=== PATIENT | male | born 1970 | race Caucasian/White ===

== ENCOUNTER 2016-10-27 12:52 | Emergency (ER) | payer OTHER ==
[~2016-10-27 12:52] MED LIST: CETI10TA16 PO; FLUT16SP NS; IBUP200T58 PO; INSU100I17 SQ; INSU100I27 SQ; NYST1000 PO
[2016-10-27 13:03] VITALS: BP 147/88
[2016-10-27] MEDS ORDERED: HYDROCODONE/APAP 5/325MG TABLET. PO ONE (14:30)
[2016-10-27] MEDS ORDERED: CYCLOBENZAPRINE 10 MG TABLET. PO ONE (14:30)
--- NOTE | 2016-10-27 14:32 | PHYS DOC ---
Past Medical History Past Medical History: No Pertinent History, Diabetes-Type II, Other Additional Past Medical Histor: THRESH Past Surgical History: No Surgical History Alcohol Use: Heavy Drug Use: None Adult General Chief Complaint Chief Complaint: [facility] HPI Patient is a 46 year old male with history of diabetes who presents with mild left shoulder pain radiating to the left upper extremity that began one week ago. Patient states the pain is worse with activity especially flexing and extending his neck or raising his left upper extremity. Patient states he has a tingling sensation to his fingers. Patient denies any injury. Denies any chest pain or shortness of breath. He clearly states it's not his heart. He states his PCP is Dr. Kenneth Johnson, he states his blood sugars run on average at 120 Review of Systems Review of Systems Constitutional: Denies fever or chills [] Eyes: Denies change in visual acuity, redness, or eye pain [] HENT: Denies nasal congestion or sore throat [] Respiratory: Denies cough or shortness of breath [] Cardiovascular: No additional information not addressed in HPI [] GI: Denies abdominal pain, nausea, vomiting, bloody stools or diarrhea [] : Denies dysuria or hematuria [] Musculoskeletal: Left shoulder pain Integument: Denies rash or skin lesions [] Neurologic: Denies headache, focal weakness or sensory changes [] Endocrine: Denies polyuria or polydipsia [] Current Medications Current Medications Current Medications Medications (Trade) Dose Ordered Sig/Denisse Start Time Stop Time Status Last Admin Dose Admin Acetaminophen/ Hydrocodone Bitart (Lortab 5/325) 1 tab 1X ONCE 10/27/16 14:30 10/27/16 14:31 DC 10/27/16 14:29 1 TAB Cyclobenzaprine HCl (Flexeril) 10 mg 1X ONCE 10/27/16 14:30 10/27/16 14:31 DC 10/27/16 14:29 10 MG Allergies Allergies Allergies Coded Allergies Type Severity Reaction Last Updated Verified No Known Medication Allergies Allergy Unknown 10/27/16 Yes mushroom Adverse Reaction Mild N/V 05/21/15 Yes shellfish derived Adverse Reaction Mild N/V 05/21/15 Yes Physical Exam Physical Exam Constitutional: Well developed, well nourished, no acute distress, non-toxic appearance. [] HENT: Normocephalic, atraumatic, bilateral external ears normal, oropharynx moist, no oral exudates, nose normal. [] Eyes: PERRLA, EOMI, conjunctiva normal, no discharge. [] Neck: Normal range of motion, no tenderness, supple, no stridor. [] Cardiovascular:Heart rate regular rhythm, no murmur [] Lungs & Thorax: Bilateral breath sounds clear to auscultation [] Abdomen: Bowel sounds normal, soft, no tenderness, no masses, no pulsatile masses. [] Skin: Warm, dry, no erythema, no rash. [] Back: No tenderness, no CVA tenderness. [] Extremities: Left upper extremity with no obvious deformity. No tenderness on palpation of the left upper extremity. Pain elicited on raising the left upper extremity above 90. Adequate abduction and adduction of the left upper extremity. Adequate ulna radial and medial sensation to the left upper extremity. +2 left radial pulse. Cap refill less than 2 seconds and left upper extremity. Sensation intact to the left upper extremity. Neurologic: Alert and oriented X 3, normal motor function, normal sensory function, no focal deficits noted. [] Psychologic: Affect normal, judgement normal, mood normal. [] Current Patient Data Vital Signs Vital Signs Date Time Temp Pulse Resp B/P Pulse Ox O2 Delivery O2 Flow Rate FiO2 10/27/16 13:03 97.8 91 18 98 Room Air 97.8 EKG EKG [] Radiology/Procedures Radiology/Procedures []PROCEDURE: CERVICAL SPINE 2-3V; SHOULDER 2+V LEFT Left shoulder, 3 views, 10/27/2016: History: Shoulder pain No fracture or dislocation is identified. No significant arthritic change is evident. IMPRESSION: No acute left shoulder abnormality is detected. Cervical spine, 3 views, 10/27/2016: History: Neck and shoulder pain There is mild disc space narrowing and marginal spurring at C6-7. No fracture or dislocation is identified. The prevertebral soft tissues are unremarkable. IMPRESSION: 1. Mild degenerative disc disease at C6-7. 2. No acute bony abnormality is detected. DICTATED and SIGNED BY: RACHEAL LEIGH MD DATE: 10/27/16 [id number] CC: CHELSY DEVLIN APRN; NON,STAFF; CHANCE CAIN MD ~ Course & Med Decision Making Course & Med Decision Making Pertinent Labs and Imaging studies reviewed. (See chart for details) Patient is in the ED with complaints of left shoulder pain with some numbness tingling to the left upper extremity that began a week ago. No known trauma. EKG was done as a precautionary measure. 14:[address] Gilbert sinus rhythm, heart rate 81, QRS interval 88 no STEMI Cervical spine x-rays were noted for degenerative changes on C6-C7 otherwise no acute findings. Left shoulder x-ray was negative for any acute findings. Patient was discharged with baclofen neck, gabapentin, and Flexeril. Follow-up with his PCP in the course of next week. Dragon Disclaimer Dragon Disclaimer This electronic medical record was generated, in whole or in part, using a voice recognition dictation system. Departure Departure Impression: Primary Impression: Cervical radiculopathy Additional Impressions: Shoulder pain, left Degenerative arthritis of cervical spine Disposition: HOME, SELF-CARE Condition: STABLE Referrals: CHANCE CAIN MD (PCP) follow up with your doctor in one week Patient Instructions: Arthritis, Nonspecific, Cervical Radiculopathy, Shoulder Pain, [id number] Additional Instructions: You were seen for shoulder pain with some numbness and tingling to your fingers. Your x-ray of the neck shows you have cervical spine arthritis. We highly recommend you follow-up with your primary care doctor as soon as you can. Take the prescribed medicines as ordered. Scripts Gabapentin 300 Mg [id number] Mg PO TID #30 CAP Prov:CHELSY DEVLIN APRN 10/27/16 Cyclobenzaprine Hcl 10 Mg Tablet1 Tab PO TID #30 TAB Prov:CHELSY DEVLIN APRN 10/27/16 Diclofenac Potassium 50 Mg Tablet1 Tab PO BID #30 TAB Ref 1 Prov:CHELSY DEVLIN APRN 10/27/16 Problem Qualifiers Additional Impressions: Shoulder pain, left Chronicity: acute Qualified Code: M25.512 - Pain in left shoulder Degenerative arthritis of cervical spine Spinal osteoarthritis complication: with radiculopathy Qualified Code: M47.22 - Other spondylosis with radiculopathy, cervical region CHELSY DEVLIN APRN Oct 27, 2016 14:32
--- NOTE | 2016-10-27 14:34 | EKG ---
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
--- NOTE | 2016-10-27 14:42 | RAD ---
Left shoulder, 3 views, 10/27/2016: History: Shoulder pain No fracture or dislocation is identified. No significant arthritic change is evident. IMPRESSION: No acute left shoulder abnormality is detected. Cervical spine, 3 views, 10/27/2016: History: Neck and shoulder pain There is mild disc space narrowing and marginal spurring at C6-7. No fracture or dislocation is identified. The prevertebral soft tissues are unremarkable. IMPRESSION: 1. Mild degenerative disc disease at C6-7. 2. No acute bony abnormality is detected.
[2016-10-27] MEDS ORDERED: CYCL10TA2 PO (14:50)
[2016-10-27] MEDS ORDERED: GABA-586 PO (14:50)
[2016-10-27] MEDS ORDERED: DICL50TA2 PO (14:50)
== END 2016-10-27 15:01 | disposition home or self-care (01) ==
LOC: ER 12:52
DX: M47.22 Other spondylosis with radiculopathy, cervical region (principal); M25.512 Pain in left shoulder; E11.9 Type 2 diabetes mellitus without complications; F10.10 Alcohol abuse, uncomplicated; Z91.018 Allergy to other foods; Z91.013 Allergy to seafood
CPT/HCPCS: 72040; 73030; 93005; 99284-25

== ENCOUNTER → 2016-11-17 | Outpatient (CLI) | payer OTHER ==
[2016-10-27 13:03] VITALS: BP 147/88
[~2016-11-17] MED LIST changes: +CYCL10TA2 PO; +DICL50TA2 PO; +GABA-586 PO; -NYST1000 PO; +NYST100054 PO
--- NOTE | 2016-11-17 15:41 | KCIC ---
PROCEDURE MRI of the cervical spine without contrast 11/17/2016 HISTORY Neck pain which radiates down the left shoulder for the last 3 weeks. TECHNIQUE Unenhanced T1 weighted, T2 weighted and inversion recovery sagittal and gradient echo and T2 weighted axial images of the cervical spine were obtained. FINDINGS Minimal lateral curvature of the cervical spine is seen convex to the right. There is straightening of the normal cervical lordosis. Degenerative signal changes are seen involving all of the discs of the cervical spine. Degenerative signal changes are seen within the marrow surrounding these discs. No area of abnormal signal intensity is seen involving the cervical spinal cord. At the C2-3 disc space there is a mild generalized disc bulge. Degenerative changes are seen involving the uncovertebral and facet joints bilaterally. These findings do not result in significant central spinal canal or neural foraminal stenosis. At the C3-4 disc space there is minimal generalized disc bulge. Superimposed on this disc bulge is a focal central disc protrusion. This measures 2 millimeters in AP diameter. Degenerative changes are seen involving the uncovertebral and facet joints, left greater than right. These findings when combined do not result in significant central spinal canal stenosis. Mild right neural foraminal stenosis is seen. The left neural foramina is patent. At the C4-5 disc space there is a mild generalized disc bulge. Superimposed on this disc bulge is a focal central disc protrusion. This measures 3.5 millimeters in AP diameter. Degenerative changes are seen involving the uncovertebral and facet joints, left greater than right. These findings when combined do not result in significant central spinal canal stenosis. Mild to moderate left neural foraminal stenosis is seen. The right neural foramina is patent. At the C5-6 disc space there is a mild generalized disc bulge. Degenerative changes are seen involving the uncovertebral and facet joints, right greater than left. Superimposed on the disc bulge is a right paracentral focal disc protrusion. This measures 2 millimeters in AP diameter. Degenerative changes are seen involving the uncovertebral and facet joints bilaterally. These findings do not result in significant central spinal canal or neural foraminal stenosis. At the C6-7 disc space there is a moderate generalized disc bulge. Superimposed on this disc bulge is a central/left paracentral focal disc herniation. This measures 6 millimeters in AP diameter. Degenerative changes are seen involving the uncovertebral and facet joints bilaterally. The disc bulge and superimposed disc herniation efface the anterior CSF resulting in mild to moderate central spinal canal stenosis with mild to moderate cord impingement. Moderate left greater than right neural foraminal stenosis is seen. At the C7-T1 disc space there is a mild generalized disc bulge. Superimposed on this disc bulge is a focal central disc protrusion. This measures 2 millimeters in AP diameter. Degenerative changes are seen involving facet joints bilaterally. These findings do not result in significant central spinal canal or neural foraminal stenosis. IMPRESSION Degenerative changes are seen throughout the cervical spine. These findings result in mild to moderate central spinal canal stenosis with mild to moderate cord impingement at C6-7. Mild right neural foraminal stenosis is seen at C3-4. Mild to moderate left neural foraminal stenosis is seen at C4-5. Moderate left greater than right neural foraminal stenosis is seen at C6-7. Electronically signed by: Rodrick Puentes MD (November 17, 2016 15:40:55)
== END | disposition home or self-care (01) ==
LOC: KCIC MRI 14:32
PROVIDERS: ATTEND Internal Medicine
DX: M47.22 Other spondylosis with radiculopathy, cervical region (principal)
CPT/HCPCS: 72141